=== PATIENT | male | born 1985 | race Caucasian/White ===

== ENCOUNTER 2018-01-20 03:09 | Emergency (ER) | payer SELFPAY ==
[~2018-01-20] VITALS: Ht 175.3 cm; Wt 89.9 kg
[~2018-01-20 03:09] MED LIST: FLEXERIL10 MG PO; KEFLEX500 MG PO; LORTAB 5-325 M1 EACH PO; NAPROSYN500 MG PO; NORCO 5/3251 TABLET PO; PROMETHAZINE HC25 M1 PO; ULTRAM50 MG PO; VICODIN,LORT1 TABLET PO; ZANTAC150 MG PO
[2018-01-20 03:12] VITALS: BP 130/90
== END 2018-01-20 03:35 | disposition left against medical advice (07) ==
LOC: EME 03:09
DX: M25.572 Pain in left ankle and joints of left foot (principal); Z53.21 Procedure and treatment not carried out due to patient leaving prior to being seen by health care provider